=== PATIENT | male | born 1960 | race Caucasian/White ===

== ENCOUNTER 2025-02-14 08:26 | Outpatient (CLI) | payer MEDICARE, SELFPAY ==
[2025-02-14 09:18] LABS: Hemoglobin A1C 5.1 % (<5.7)
[2025-02-14 09:32] LABS: Anion Gap 8.4 mmol/L (3-11); BUN 19 mg/dL (7-18); CO2 31.6 mmol/L (21.0-32.0); Calcium 8.9 mg/dL (8.5-10.1); Calculated LDL 85 mg/dL (<100); Chloride 101 mmol/L (98-107); Cholesterol 156 mg/dL (<200); Estimated GFR 75.90 (mL/min/1.73m2); Glucose 97 mg/dL (74-106); HDL Cholesterol 63 mg/dL (>or=40); Potassium 4.2 mmol/L (3.5-5.1); Sodium 141 mmol/L (136-145); Triglyceride 42 mg/dL (<150)
[2025-02-14 17:45] LABS: PSA, Screening 1.1 ng/mL (<=4.5)
== END 2025-02-14 08:27 | disposition home or self-care (01) ==
LOC: LBO 08:27
PROVIDERS: PCP Nurse Practitioner Family; Visit Provider Nurse Practitioner Family
DX: Z12.5 Encounter for screening for malignant neoplasm of prostate (principal); Z13.1 Encounter for screening for diabetes mellitus; Z13.6 Encounter for screening for cardiovascular disorders
CPT/HCPCS: 36415; 71271; 80048; 80061; 84153; 83036